=== PATIENT | male | born 1980 | race African-American/Black ===

== ENCOUNTER 2024-12-28 21:02 | Inpatient (IN) | payer MEDICAID, OTHER ==
[~2024-12-28] VITALS: Ht 175.3 cm; Wt 77.0 kg
[~2024-12-28 21:02] MED LIST: ARIP5TAB51 PO; BENZ-247 PO; LITH300C3 PO; METO-408 PO; MIRT-89 PO
[2024-12-28 22:49] LABS: PLATELET COUNT (AUTO) 235 K/uL (150-450); RED BLOOD CELL COUNT(AUTO) 4.61 MIL/uL (4.50-5.90); RED CELL DISTRIBUTION WIDTH 15.2 % (11.5-14.5); WHITE BLOOD COUNT (AUTO) 8.7 K/uL (4.5-11.0)
[2024-12-28 22:53] LABS: CALCIUM, TOTAL 9.1 mg/dL (8.8-10.5); CREATININE 1.20 mg/dL (0.60-1.30); GLOMERULAR FILTR. RATE CALC > 60 mL/min (>60); GLUCOSE,RANDOM 94 mg/dL (70-110); SODIUM SERUM 140 mmol/L (136-145); UREA NITROGEN, BLOOD 14 mg/dL (7-18)
[2024-12-29 00:41] LABS: COVID AG,FIA SOURCE NASAL SWAB
[2024-12-29 00:47] LABS: PH,URINE DRUG SCREEN 7.0 (5.0-8.0)
[2024-12-29 00:49] LABS: SARS-COV2 (COVID) ANTIGEN,FIA Negative (Negative)
[2024-12-29 00:51] LABS: ALCOHOL, URINE DRUG SCREEN NEGATIVE (NEGATIVE); AMPHET/METH SCREEN,URINE NEGATIVE (NEGATIVE); BARBITURATE SCREEN, URINE NEGATIVE (NEGATIVE); CANNABINOID SCREEN,URINE POSITIVE (NEGATIVE); COCAINE SCREEN,URINE NEGATIVE (NEGATIVE); METHADONE SCREEN, URINE NEGATIVE (NEGATIVE)
[2024-12-29] MEDS ORDERED: ONDANSETRON HCL 4 MG/2 ML VIAL IVP PRN (03:30)
[2024-12-29] MEDS ORDERED: ACETAMINOPHEN 325 MG TABLET PO PRN ×2 (03:30→10:15)
[2024-12-29] MEDS ORDERED: HEPARIN SODIUM,PORCINE 5,000 UNITS/ML VIAL SQ SCH (08:00)
[2024-12-29] MEDS ORDERED: DOCUSATE SODIUM 100 MG CAPSULE PO SCH (09:00)
[2024-12-29] MEDS ORDERED: OMEPRAZOLE 20 MG CAPSULE PO PRN (10:15)
[2024-12-29] MEDS ORDERED: DOCUSATE SODIUM 100 MG CAPSULE PO PRN (10:15)
[2024-12-29] MEDS ORDERED: ALBUTEROL SULFATE HFA 90 MCG/PUFF 8 GM INHALER IH PRN (10:15)
[2024-12-29] MEDS ORDERED: MAG HYDROX/ALUMINUM HYD/SIMETH ES 30 ML SUSPENSION UDCUP PO PRN (10:15)
[2024-12-29] MEDS ORDERED: IBUPROFEN 600 MG TABLET PO PRN (10:15)
[2024-12-29] MEDS ORDERED: MAGNESIUM HYDROXIDE SUSPENSION 30 ML UDCUP PO PRN (10:15)
[2024-12-29] MEDS ORDERED: BACITRACIN 28 GM OINTMENT TP PRN (10:15)
[2024-12-29] MEDS ORDERED: ONDANSETRON 4 MG TABLET PO PRN (10:15)
[2024-12-29] MEDS ORDERED: BENZOCAINE/MENTHOL [CEPACOL] LOZENGE PO PRN (10:15)
[2024-12-29] MEDS ORDERED: LOPERAMIDE HCL 2 MG CAPSULE PO PRN (10:15)
[2024-12-29] MEDS ORDERED: BENZ2TAB84 PO (11:47)
[2024-12-29 12:21] VITALS: BP 128/83; PULSE 107; RESP 18; TEMP 97.3; O2SAT 100
[2024-12-29] MEDS ORDERED: -PHARMACY VACCINE NOTE- MISC ONE (13:00)
[2024-12-29] MEDS: DIVALPROEX SODIUM 500 MG DR TABLET PO SCH (17:00)
[2024-12-29] MEDS: LITHIUM CARBONATE 300 MG CAPSULE PO SCH (17:31)
[2024-12-29 20:33] VITALS: BP 138/96; PULSE 88; RESP 18; TEMP 98.2; O2SAT 99
[2024-12-29] MEDS: ZOLPIDEM TARTRATE 10 MG TABLET PO PRN (20:56)
[2024-12-29] MEDS: PETROLATUM,WHITE 28 GM JELLY TP PRN (20:57)
[2024-12-29] MEDS ORDERED: ZOLPIDEM TARTRATE 10 MG TABLET PO SCH (21:00)
[2024-12-30] VITALS (9 sets, daily range): BP systolic 93–133; BP diastolic 51–89; PULSE 69–122; RESP 16–18; TEMP 97.7–98.8; O2SAT 98–100
[2024-12-30] MEDS: METOPROLOL SUCCINATE 25 MG ER TABLET PO SCH (08:09)
[2024-12-30] MEDS: MIRTAZAPINE 15 MG TABLET PO SCH (21:03)
[2024-12-31 08:28] LABS: PLATELET COUNT (AUTO) 233 K/uL (150-450); RED BLOOD CELL COUNT(AUTO) 4.72 MIL/uL (4.50-5.90); RED CELL DISTRIBUTION WIDTH 15.2 % (11.5-14.5); WHITE BLOOD COUNT (AUTO) 6.7 K/uL (4.5-11.0)
[2024-12-31 08:35] VITALS: BP 108/65; PULSE 115; RESP 17; TEMP 97.4; O2SAT 97
[2024-12-31 20:22] VITALS: BP 114/75; PULSE 94; RESP 18; TEMP 98.4; O2SAT 98
[2025-01-01 09:35] VITALS: BP 117/62; PULSE 89; RESP 17; TEMP 97.9; O2SAT 100
[2025-01-01] MEDS ORDERED: NICOTINE 14 MG/24 HOUR PATCH TD PRN (13:15)
[2025-01-01 20:14] VITALS: RESP 18
[2025-01-02 08:13] VITALS: RESP 18
[2025-01-02 09:31] LABS: VALPROIC ACID 34.0 mcg/mL (50-100)
[2025-01-02 09:32] LABS: PH,URINE DRUG SCREEN 7.0 (5.0-8.0)
[2025-01-02 09:38] LABS: AMPHET/METH SCREEN,URINE NEGATIVE (NEGATIVE); BARBITURATE SCREEN, URINE NEGATIVE (NEGATIVE); CANNABINOID SCREEN,URINE POSITIVE (NEGATIVE); COCAINE SCREEN,URINE NEGATIVE (NEGATIVE); METHADONE SCREEN, URINE NEGATIVE (NEGATIVE)
[2025-01-02 09:41] LABS: ALCOHOL, URINE DRUG SCREEN NEGATIVE (NEGATIVE)
[2025-01-02 20:04] VITALS: BP 125/79; PULSE 87; RESP 18; TEMP 97.4; O2SAT 100
[2025-01-03 08:17] VITALS: RESP 18
[2025-01-03] MEDS ORDERED: DIVA-112 PO (09:40)
[2025-01-03] MEDS ORDERED: METO25XL PO (09:40)
== END 2025-01-03 14:39 | disposition home or self-care (01) | DRG 761 ==
LOC: EMS 22:02 → EDBEDREQ 12-29 01:48 → EDH 12-29 03:19 → UNDOADMIN 12-29 03:19 → B3A 12-29 05:26
PROVIDERS: ADMIT Psychiatry & Neurology Psychiatry; ATTEND Psychiatry & Neurology Psychiatry
DX: F25.9 Schizoaffective disorder, unspecified (principal); R45.851 Suicidal ideations; I10 Essential (primary) hypertension; F10.90 Alcohol use, unspecified, uncomplicated; F41.9 Anxiety disorder, unspecified; G47.00 Insomnia, unspecified; K59.00 Constipation, unspecified; Y90.0 Blood alcohol level of less than 20 mg/100 ml; Z20.822 Contact with and (suspected) exposure to COVID-19; F12.90 Cannabis use, unspecified, uncomplicated; Z72.0 Tobacco use; Z79.899 Other long term (current) drug therapy
CPT/HCPCS: 80048; 80164; 80178; 80307; 85025; 87081; 87086; 99285; G0480